=== PATIENT | male | born 1970 | race Caucasian/White ===

== ENCOUNTER 2016-04-17 05:50 | Day surgery (SDC) | payer OTHER ==
[~2016-04-17] VITALS: Ht 177.8 cm; Wt 105.6 kg
[~2016-04-17 05:50] MED LIST: BENICAR HCT 201 EACH PO; BENTYL10 MG PO; CELEXA10 MG PO; CINNAMON500 MG PO; CYANOCOBALAM1000 MCG SL; FLINTSTONES M300 MCG PO; HYDROCODON-ACE1 EAC7 PO; K-DUR20 MEQ PO; KRILL OIL 5001 EACH PO; KRILL OIL500 MG PO; MULTI VITAMIN1 EACH PO; OMEPRAZOLE40 M1 PO; OSTEO BI-FLEX1 EAC1 PO; SALINE NASAL SP45 ML BOTH NARES; ST. JOSEPH ASPI81 MG PO; TOPROL XL50 MG PO; ZYRTEC10 M3 PO
[2016-04-17 06:28] VITALS: BP 136/72
[2016-04-17 06:35] LABS: POINT-OF-CARE METER ID UU14174212
[2016-04-17 09:46] VITALS: BP 168/79
[2016-04-17 10:50] VITALS: BP 107/67
[2016-04-17 12:50] VITALS: BP 127/76
[2016-04-17 14:50] VITALS: BP 147/88
== END 2016-04-17 14:51 | disposition home or self-care (01) ==
LOC: SDC 05:50
PROVIDERS: Surgery
PROC: 0FT44ZZ Resection of Gallbladder, Percutaneous Endoscopic Approach (ICD-10-PCS; principal; 2016-04-17)
DX: K80.10 Calculus of gallbladder with chronic cholecystitis without obstruction (principal); Z98.84 Bariatric surgery status; E66.9 Obesity, unspecified; Z68.33 Body mass index [BMI] 33.0-33.9, adult; Z79.82 Long term (current) use of aspirin
CPT/HCPCS: 82948; 88304; J0330; J0690; J1170; J1644; J2250; J2405; J2710; J3010; S0020